=== PATIENT | female | born 1995 | race Caucasian/White ===

== ENCOUNTER 2020-05-07 20:58 | Emergency (ER) | payer MEDICAID ==
[~2020-05-07] VITALS: Ht 160 cm; Wt 59.2 kg
[2020-05-07 21:12] VITALS: Ht 160 cm; Wt 59.2 kg
[2020-05-07 23:11] VITALS: BP 112/67
== END 2020-05-07 23:00 | disposition home or self-care (01) ==
LOC: ED 20:58
DX: S63.502A Unspecified sprain of left wrist, initial encounter (principal); S00.83XA Contusion of other part of head, initial encounter; S09.8XXA Other specified injuries of head, initial encounter; W01.0XXA Fall on same level from slipping, tripping and stumbling without subsequent striking against object, initial encounter; Y93.89 Activity, other specified; Y92.89 Other specified places as the place of occurrence of the external cause; Y99.8 Other external cause status
CPT/HCPCS: Q0092